=== PATIENT | female | born 1955 | race Caucasian/White ===

== ENCOUNTER 2017-11-24 08:41 | Day surgery (SDC) | payer MEDICARE ==
[2017-11-24] MEDS ORDERED: Lactated Ringer's 500 ML IV ONE (08:52)
[2017-11-24] MEDS ORDERED: Propofol 10 mg/ml Inj (20 ML) ONE (10:52)
[2017-11-24 11:16] VITALS: TEMP 97.4
[2017-11-24 11:34] VITALS: BP 106/65; PULSE 83; RESP 18; O2SAT 99
[2017-11-24] MEDS ORDERED: Albuterol 0.083% Inhal Sol (2.5 mg/3 mL) UD INH ONE (12:06)
== END 2017-11-24 11:35 | disposition home or self-care (01) ==
LOC: H.ENDO 08:41
PROVIDERS: ATTEND Internal Medicine Gastroenterology
DX: R10.13 Epigastric pain (principal); E11.9 Type 2 diabetes mellitus without complications; E78.5 Hyperlipidemia, unspecified; I10 Essential (primary) hypertension; G47.30 Sleep apnea, unspecified; K31.89 Other diseases of stomach and duodenum; K29.50 Unspecified chronic gastritis without bleeding
CPT/HCPCS: 43239; 82948; 88305; J2001; J2704; J7120